=== PATIENT | female | born 1945 | race African-American/Black ===

== ENCOUNTER 2017-12-18 19:43 | Emergency (ER) | payer OTHER ==
[~2017-12-18] VITALS: Ht 167.6 cm; Wt 124.3 kg
[2017-12-18 20:27] LABS: Basophils # (auto) 0.1 uL; Eosinophils # (auto) 0.2 uL; Hemoglobin 9.9 g/dL (12.2-16.2); Nucleated Red Blood Cells % 0.1 %
[2017-12-18 20:29] LABS: Basophils % (auto) 0.8 % (0.0-2.0); Hematocrit 31.7 % (36.0-46.0); Lymphocytes % (auto) 18.1 % (10.0-50.0); Mean Corpuscular Hemoglobin 26.9 pg (28.0-32.0); Mean Corpuscular Hgb Conc. 31.3 g/dL (32.0-36.0); Mean Corpuscular Volume 85.9 fL (80.0-100.0); Monocytes # (auto) 0.7 uL; Monocytes % (auto) 6.5 % (0.0-12.0); Neutrophils # (auto) 8.2 uL; Neutrophils % (auto) 72.6 % (37.0-80.0); Platelet Count (auto) 391 10^3/uL (140-450); Red Blood Cells 3.69 10^6/uL (4.0-5.20); White Blood Cell 11.3 10^3/uL (4.4-10.8)
[2017-12-18 20:44] LABS: Partial Thromboplastin Time 41.3 sec (22.64-33.71); Prothrombin Time 49.2 sec (9.37-12.3)
[2017-12-18 20:47] LABS: INR 4.45 (0.9-1.15)
[2017-12-18 20:48] LABS: Alanine Aminotransferase 16 U/L (13-56); Albumin 2.9 g/dL (3.4-5.0); Alkaline Phosphatase 95 U/L (45-117); Anion Gap 11 (5-15); Aspartate Aminotransferase 15 U/L (15-37); BUN/Creatinine Ratio 12.2; Bilirubin, Total 0.2 mg/dL (0.2-1.0); Blood Urea Nitrogen 15 mg/dL (7-18); Calcium 8.2 mg/dL (8.5-10.1); Carbon Dioxide 23 mmol/L (21-32); Chloride 110 mmol/L (98-107); GFR African American 55 mL/min; GFR Non-African American 46 mL/min; Glucose 150 mg/dL (74-106); Potassium 3.3 mmol/L (3.5-5.1); Sodium 144 mmol/L (136-145); Total Protein 6.8 g/dL (6.4-8.2)
[2017-12-18] MEDS ORDERED: POTASSIUM CHL 20 Meq TABLET PO ONE (23:30)
[2017-12-19 00:49] LABS: Urine Bacteria FEW /hpf (None Seen); Urine Blood 3+ /uL (Negative); Urine Hyaline Cast MOD /lpf (0 - 2); Urine Mucus FEW (None Seen); Urine Specific Gravity 1.014 (1.001-1.035); Urine WBC 106 /hpf (0 - 5); Urine WBC Clumps PRESENT /hpf (None Seen)
[2017-12-19] MEDS ORDERED: PANTOPRAZOLE 40 MG/10 ML VIAL IV ONE (04:15)
[2017-12-19] MEDS ORDERED: metroNIDAZOLE 500 MG TAB PO ONE (04:30)
[2017-12-19] MEDS ORDERED: LEVOFLOXACIN 500 MG TAB PO ONE (04:30)
[2017-12-19 05:32] LABS: Hemoglobin 9.1 g/dL (12.2-16.2)
[2017-12-19 09:33] VITALS: BP 178/50
== END 2017-12-19 09:47 | disposition short-term general hospital (02) ==
LOC: ER 19:43
DX: K62.5 Hemorrhage of anus and rectum (principal); D64.9 Anemia, unspecified; D72.829 Elevated white blood cell count, unspecified; R73.9 Hyperglycemia, unspecified; D68.9 Coagulation defect, unspecified; J44.9 Chronic obstructive pulmonary disease, unspecified; I10 Essential (primary) hypertension; Z90.710 Acquired absence of both cervix and uterus; Z90.49 Acquired absence of other specified parts of digestive tract
CPT/HCPCS: 36415; 74176; 80053; 81001; 84484; 85014; 85018; 85025; 85610; 85730; 86850; 86900; 86901; 93005; 96374; 99285; C9113

== ENCOUNTER 2018-06-12 06:36 | Emergency (ER) | payer OTHER ==
[~2018-06-12] VITALS: Ht 167.6 cm; Wt 119.7 kg
[2018-06-12 07:48] VITALS: BP 141/76
== END 2018-06-12 08:18 | disposition home or self-care (01) ==
LOC: ER 06:36
DX: M25.532 Pain in left wrist (principal); M79.1 Myalgia; J44.9 Chronic obstructive pulmonary disease, unspecified; I10 Essential (primary) hypertension; Z88.6 Allergy status to analgesic agent; W01.0XXA Fall on same level from slipping, tripping and stumbling without subsequent striking against object, initial encounter; Y93.01 Activity, walking, marching and hiking; Y92.89 Other specified places as the place of occurrence of the external cause; Y99.8 Other external cause status
CPT/HCPCS: 72110; 73080; 73110

== ENCOUNTER 2020-10-27 22:30 | Emergency (ER) | payer OTHER ==
[~2020-10-27] VITALS: Ht 167.6 cm; Wt 81.6 kg
[2020-10-28 00:35] LABS: Basophils # (auto) 0 10 ^3/uL (0-0.2); Basophils % (auto) 0.2 % (0.0-2.0); Eosinophils # (auto) 0 10 ^3/uL (0-0.8); Eosinophils % (auto) 0.3 % (0.0-7.0); Hematocrit 38.9 % (36.0-46.0); Hemoglobin 12.6 g/dL (12.2-16.2); Lymphocytes # (auto) 2.5 10 ^3/uL (0.4-5.4); Lymphocytes % (auto) 19.6 % (10.0-50.0); Mean Corpuscular Hemoglobin 30.8 pg (28.0-32.0); Mean Corpuscular Hgb Conc. 32.4 g/dL (32.0-36.0); Mean Corpuscular Volume 95.2 fL (80.0-100.0); Monocytes % (auto) 7.6 % (0.0-12.0); Neutrophils # (auto) 9.1 10 ^3/uL (1.6-8.6); Neutrophils % (auto) 72.3 % (37.0-80.0); Nucleated Red Blood Cells % 0.1 %; Platelet Count (auto) 191 10^3/uL (140-450); Red Blood Cells 4.09 10^6/uL (4.0-5.20); Red Cell Distribution Width 13.9 % (11.8-14.3); White Blood Cell 12.7 10^3/uL (4.4-10.8)
[2020-10-28 00:58] LABS: Alanine Aminotransferase 128 U/L (13-56); Albumin 3.4 g/dL (3.4-5.0); Aspartate Aminotransferase 69 U/L (15-37); BUN/Creatinine Ratio 16.1; Blood Urea Nitrogen 24 mg/dL (7-18); GFR African American 44 mL/min; GFR Non-African American 36 mL/min; Glucose 112 mg/dL (74-106)
[2020-10-28 01:03] LABS: Alkaline Phosphatase 91 U/L (45-117); Bilirubin, Total 0.2 mg/dL (0.2-1.0); Total Protein 6.4 g/dL (6.4-8.2)
[2020-10-28 02:18] LABS: Chloride 108 mmol/L (98-107); Potassium 4.4 mmol/L (3.5-5.1); Sodium 142 mmol/L (136-145)
[2020-10-28 02:49] LABS: Anion Gap 6 (5-15); Carbon Dioxide 28 mmol/L (21-32)
[2020-10-28 03:00] LABS: Calcium 9.3 mg/dL (8.5-10.1)
[2020-10-28] MEDS ORDERED: KETOROLAC TROMETH 30 MG/ML 1ML VIAL IV ONE (07:30)
[2020-10-28] MEDS ORDERED: ACETAMINOPHEN 325 MG TAB PO ONE (11:30)
[2020-10-28 12:02] VITALS: BP 151/70
== END 2020-10-28 12:48 | disposition home or self-care (01) ==
LOC: EDBD 22:30 → ER 22:40
DX: R07.89 Other chest pain (principal); I10 Essential (primary) hypertension; J44.9 Chronic obstructive pulmonary disease, unspecified; F17.210 Nicotine dependence, cigarettes, uncomplicated; Z20.828 Contact with and (suspected) exposure to other viral communicable diseases
CPT/HCPCS: 36415; 71045; 80053; 82728; 83880; 84484; 85025; 86141; 87426; 93005; 96374; 99285; C9803; J1885; U0003

== ENCOUNTER 2021-09-15 11:44 | Emergency (ER) | payer OTHER ==
[~2021-09-15] VITALS: Ht 167.6 cm; Wt 106.1 kg
[2021-09-15 11:45] VITALS: BP 146/104
[2021-09-15] MEDS ORDERED: methylPREDNISolone SOD SUCC 125 MG/2 ML VL IV ONE (12:15)
[2021-09-15 15:15] LABS: Basophils # (auto) 0 10 ^3/uL (0-0.2); Basophils % (auto) 0.4 % (0.0-2.0); Eosinophils # (auto) 0.1 10 ^3/uL (0-0.8); Eosinophils % (auto) 0.9 % (0.0-7.0); Hematocrit 41.4 % (36.0-46.0); Hemoglobin 13.5 g/dL (12.2-16.2); Lymphocytes # (auto) 2.8 10 ^3/uL (0.4-5.4); Lymphocytes % (auto) 25.1 % (10.0-50.0); Mean Corpuscular Hgb Conc. 32.6 g/dL (32.0-36.0); Mean Corpuscular Volume 92.2 fL (80.0-100.0); Monocytes # (auto) 0.9 10 ^3/uL (0-1.3); Monocytes % (auto) 8.3 % (0.0-12.0); Neutrophils # (auto) 7.2 10 ^3/uL (1.6-8.6); Neutrophils % (auto) 65.3 % (37.0-80.0); Nucleated Red Blood Cells % 0.2 %; Red Blood Cells 4.49 10^6/uL (4.0-5.20); Red Cell Distribution Width 13.4 % (11.8-14.3)
[2021-09-15 15:26] LABS: Albumin 3.3 g/dL (3.4-5.0); Calcium 8.8 mg/dL (8.5-10.1); Potassium 4.5 mmol/L (3.5-5.1)
[2021-09-15 15:47] LABS: BUN/Creatinine Ratio 23.8; Bilirubin, Total 0.2 mg/dL (0.2-1.0); Total Protein 6.9 g/dL (6.4-8.2)
[2021-09-15] MEDS ORDERED: ACETAMINOPHEN 325 MG TAB PO ONE (16:45)
== END 2021-09-15 17:33 | disposition home or self-care (01) ==
LOC: EDBD 11:44 → ER 11:44
DX: J44.1 Chronic obstructive pulmonary disease with (acute) exacerbation (principal); I12.9 Hypertensive chronic kidney disease with stage 1 through stage 4 chronic kidney disease, or unspecified chronic kidney disease; N18.9 Chronic kidney disease, unspecified; Z86.73 Personal history of transient ischemic attack (TIA), and cerebral infarction without residual deficits; Z90.49 Acquired absence of other specified parts of digestive tract; Z90.710 Acquired absence of both cervix and uterus; Z88.5 Allergy status to narcotic agent
CPT/HCPCS: 36415; 71045; 80053; 83880; 84484; 85025; 85379; 93005

== ENCOUNTER 2022-12-09 19:31 | Emergency (ER) | payer OTHER ==
[~2022-12-09] VITALS: Ht 167.6 cm; Wt 100.0 kg
[2022-12-09 20:36] LABS: Basophils # (auto) 0.1 10 ^3/uL (0-0.2); Basophils % (auto) 0.8 % (0.0-2.0); Eosinophils # (auto) 0.2 10 ^3/uL (0-0.8); Eosinophils % (auto) 1.7 % (0.0-7.0); Hematocrit 40.6 % (36.0-46.0); Hemoglobin 13.2 g/dL (12.2-16.2); Lymphocytes # (auto) 2.7 10 ^3/uL (0.4-5.4); Lymphocytes % (auto) 26.9 % (10.0-50.0); Mean Corpuscular Hemoglobin 30.7 pg (28.0-32.0); Mean Corpuscular Hgb Conc. 32.5 g/dL (32.0-36.0); Mean Corpuscular Volume 94.5 fL (80.0-100.0); Monocytes # (auto) 0.8 10 ^3/uL (0-1.3); Monocytes % (auto) 7.7 % (0.0-12.0); Neutrophils # (auto) 6.2 10 ^3/uL (1.6-8.6); Neutrophils % (auto) 62.9 % (37.0-80.0); Red Cell Distribution Width 13.4 % (11.8-14.3); White Blood Cell 9.9 10^3/uL (4.4-10.8)
[2022-12-09 20:40] LABS: Albumin 3.4 g/dL (3.4-5.0); Calcium 8.8 mg/dL (8.5-10.1); Potassium 4.4 mmol/L (3.5-5.1)
[2022-12-09 20:45] LABS: BUN/Creatinine Ratio 13.7; Bilirubin, Total 0.3 mg/dL (0.2-1.0); Total Protein 5.9 g/dL (6.4-8.2)
[2022-12-09 22:17] LABS: Urine Bacteria FEW /hpf (None Seen); Urine Blood Negative /uL (Negative); Urine Hyaline Cast MANY /lpf (0 - 2); Urine Mucus FEW (None Seen); Urine Specific Gravity 1.013 (1.001-1.035); Urine WBC 5 /hpf (0 - 5)
[2022-12-10] MEDS ORDERED: SODIUM CHLORIDE 0.9% 500 ML IV ONE (04:45)
[2022-12-10] MEDS ORDERED: cefTRIAXone 1GM/50ML D5W 50 ML IV ONE (04:45)
[2022-12-10 11:21] VITALS: BP 116/41
== END 2022-12-10 11:38 | disposition short-term general hospital (02) ==
LOC: EDBD 19:31 → ER 19:31
DX: R55 Syncope and collapse (principal); J44.9 Chronic obstructive pulmonary disease, unspecified; I12.9 Hypertensive chronic kidney disease with stage 1 through stage 4 chronic kidney disease, or unspecified chronic kidney disease; N18.9 Chronic kidney disease, unspecified; Z90.49 Acquired absence of other specified parts of digestive tract; Z90.710 Acquired absence of both cervix and uterus; Z20.822 Contact with and (suspected) exposure to COVID-19
CPT/HCPCS: 36415; 70450; 71045; 80053; 81001; 82962; 84484; 85025; 87426; 93005; 96365; 99285; J0696; J7040

== ENCOUNTER 2023-12-01 09:33 | Emergency (ER) | payer OTHER ==
[~2023-12-01] VITALS: Ht 160 cm; Wt 92.8 kg
[2023-12-01 09:40] VITALS: PULSE 106; RESP 17; O2SAT 99
[2023-12-01 10:40] LABS: Basophils # (auto) 0.1 10 ^3/uL (0-0.2); Basophils % (auto) 0.5 % (0.0-2.0); Eosinophils # (auto) 0.1 10 ^3/uL (0-0.8); Eosinophils % (auto) 0.5 % (0.0-7.0); Hematocrit 42.2 % (36.0-46.0); Hemoglobin 13.9 g/dL (12.2-16.2); Lymphocytes # (auto) 2.2 10 ^3/uL (0.4-5.4); Lymphocytes % (auto) 19.1 % (10.0-50.0); Mean Corpuscular Hemoglobin 30.7 pg (28.0-32.0); Monocytes % (auto) 8.7 % (0.0-12.0); Neutrophils # (auto) 8.3 10 ^3/uL (1.6-8.6); Neutrophils % (auto) 71.2 % (37.0-80.0); Nucleated Red Blood Cells % 0.1 %; Red Blood Cells 4.53 10^6/uL (4.0-5.20); Red Cell Distribution Width 13.2 % (11.8-14.3); White Blood Cell 11.7 10^3/uL (4.4-10.8)
[2023-12-01] MEDS ORDERED: ONDANSETRON HCL 4 MG/2 ML VIAL IV ONE (10:45)
[2023-12-01] MEDS ORDERED: MORPHINE SULFATE 4 MG/ML SYR/VIAL IV ONE (10:45)
[2023-12-01 10:51] LABS: Chloride 109 mmol/L (98-107); Potassium 3.7 mmol/L (3.5-5.1); Sodium 141 mmol/L (136-145)
[2023-12-01 10:52] LABS: Anion Gap 8 (5-15); Calcium 9.8 mg/dL (8.5-10.1); Carbon Dioxide 24 mmol/L (20-30)
[2023-12-01 10:54] LABS: Urine Epithelial Cast None Seen /hpf (<5)
[2023-12-01 10:57] LABS: BUN/Creatinine Ratio 15.2 (10.0-20.0); Blood Urea Nitrogen 19 mg/dL (9-23); Glucose 109 mg/dL (74-106)
[2023-12-01 11:12] LABS: Urine Bacteria FEW /hpf (None Seen); Urine Blood 1+ /uL (Negative); Urine Budding Yeast OCCASIONAL /hpf (None Seen); Urine Clarity Clear (Clear); Urine Color Yellow (Yellow); Urine Hyaline Cast MOD /lpf (0 - 2); Urine Mucus FEW (None Seen); Urine Protein, UAD 1+ (Negative); Urine Specific Gravity 1.017 (1.001-1.035); Urine Urobilinogen Normal (Negative); Urine WBC 1 /hpf (0 - 5); Urine pH 5.5 (5.0-8.0)
[2023-12-01 16:59] VITALS: BP 130/46; PULSE 88; RESP 16; TEMP 99; O2SAT 97
== END 2023-12-01 17:11 | disposition short-term general hospital (02) ==
LOC: EDBD 09:33 → ER 09:33
DX: M54.9 Dorsalgia, unspecified (principal); R10.9 Unspecified abdominal pain; J45.909 Unspecified asthma, uncomplicated; J44.9 Chronic obstructive pulmonary disease, unspecified; I10 Essential (primary) hypertension; F12.10 Cannabis abuse, uncomplicated; D72.829 Elevated white blood cell count, unspecified; Z86.73 Personal history of transient ischemic attack (TIA), and cerebral infarction without residual deficits; Z90.49 Acquired absence of other specified parts of digestive tract; Z90.710 Acquired absence of both cervix and uterus; Z88.6 Allergy status to analgesic agent
CPT/HCPCS: 36415; 74176; 80048; 81001; 85025; 96374; 96375; 99285; J2270; J2405

== ENCOUNTER 2023-12-18 18:15 | Inpatient (IN) | payer OTHER ==
[~2023-12-18] VITALS: Ht 167.6 cm; Wt 87.6 kg
[2023-12-18 19:28] LABS: Basophils # (auto) 0 10 ^3/uL (0-0.2); Basophils % (auto) 0.1 % (0.0-2.0); Eosinophils # (auto) 0 10 ^3/uL (0-0.8); Hematocrit 38.5 % (36.0-46.0); Hemoglobin 12.6 g/dL (12.2-16.2); Lymphocytes # (auto) 0.7 10 ^3/uL (0.4-5.4); Lymphocytes % (auto) 7.5 % (10.0-50.0); Mean Corpuscular Hgb Conc. 32.6 g/dL (32.0-36.0); Monocytes # (auto) 0.9 10 ^3/uL (0-1.3); Neutrophils # (auto) 8.2 10 ^3/uL (1.6-8.6); Neutrophils % (auto) 83.4 % (37.0-80.0); Red Blood Cells 4.18 10^6/uL (4.0-5.20); Red Cell Distribution Width 13.2 % (11.8-14.3); White Blood Cell 9.9 10^3/uL (4.4-10.8)
[2023-12-18 19:44] LABS: Alanine Aminotransferase 14 U/L (7-40); Albumin 3.7 g/dL (3.2-4.8); Alkaline Phosphatase 66 U/L (46-116); Anion Gap 9 (5-15); Aspartate Aminotransferase 26 U/L (13-40); Blood Urea Nitrogen 16 mg/dL (9-23); Calcium 8.7 mg/dL (8.7-10.4); Carbon Dioxide 21 mmol/L (20-30); Chloride 107 mmol/L (98-107); Glucose 110 mg/dL (74-106); Magnesium 1.8 mg/dL (1.6-2.6); Potassium 3.9 mmol/L (3.5-5.1); Sodium 137 mmol/L (136-145)
[2023-12-18 19:45] LABS: Bilirubin, Total 0.6 mg/dL (0.2-1.0); Total Protein 6.3 g/dL (5.7-8.2)
[2023-12-18] MEDS: IPRATROPIUM BROM 0.5 MG/2.5ML INH SOL HHN ONE (19:49)
[2023-12-18] MEDS: ALBUTEROL SULF 2.5 MG/0.5ML(0.5%) NEB SOLN HHN ONE (19:49)
[2023-12-18] MEDS: methylPREDNISolone SOD SUCC 125 MG/2 ML VL IV ONE (20:16)
[2023-12-18] MEDS: cefTRIAXone 1GM/50ML D5W 50 ML IV ONE (20:16)
[2023-12-18] MEDS: ONDANSETRON HCL 4 MG/2 ML VIAL IV ONE (20:17)
[2023-12-18] MEDS: ACETAMINOPHEN 325 MG TAB PO ONE (20:17)
[2023-12-18] MEDS: AZITHROMYCIN 500MG/ 250ML 250 ML IV ONE (20:19)
[2023-12-18] MEDS: FAMOTIDINE (10MG/ML) 2ML VL IV ONE (20:24)
[2023-12-18] MEDS: PROMETHAZINE-DM 5 ML ORAL SYRUP PO ONE (21:00)
[2023-12-18 21:59] LABS: Rapid Influenza A Negative (Negative); Rapid Influenza B Negative (Negative)
[2023-12-18 22:01] LABS: COVID19 ANTIGEN SOFIA FIA POSITIVE (NEGATIVE)
[2023-12-18] MEDS ORDERED: ALBUTEROL SULF HFA 90MCG INH 200DOSE IN PRN (22:30)
[2023-12-18] MEDS ORDERED: REMDESIVIR PER PHARMACY 0 ML IV SCH (22:30)
[2023-12-19 01:25] VITALS: PULSE 85; RESP 21; O2SAT 100
[2023-12-19] MEDS ORDERED: NITROGLYCERIN 0.4 MG SL TAB SL PRN (04:00)
[2023-12-19] MEDS ORDERED: ONDANSETRON HCL 4 MG/2 ML VIAL IV PRN (04:00)
[2023-12-19 08:00] VITALS: RESP 17; O2SAT 96
[2023-12-19] MEDS: ENOXAPARIN SOD 40 MG/0.4 ML SYRINGE SC SCH (10:00)
[2023-12-19] MEDS: DexAMETHasone SOD PHOS 10MG/1ML VIAL INJ IV SCH (10:19)
[2023-12-19] MEDS: ZINC SULFATE 220mg CAP or TAB PO SCH (10:20)
[2023-12-19] MEDS: SERTRALINE HCL 50 MG TAB PO SCH (10:20)
[2023-12-19] MEDS: amLODIPine BESYLATE 5 MG TAB PO SCH (10:20)
[2023-12-19] MEDS: REMDESIVIR 200 MG in NS 210ml LOADING DOSE ADULT IV ONE (15:00)
[2023-12-19] MEDS ORDERED: AZITHROMYCIN 500MG/ 250ML 250 ML IV ONE (15:15)
[2023-12-19 15:57] LABS: Base Excess -2.3 mmol/L (-2.0-2.0)
[2023-12-19 20:00] VITALS: PULSE 86; RESP 15; O2SAT 97
[2023-12-19] MEDS: ACETAMINOPHEN 325 MG TAB PO PRN (20:19)
[2023-12-20] VITALS (10 sets, daily range): BP systolic 104–123; BP diastolic 66–74; PULSE 75–98; RESP 16–18; TEMP 97.2–98.2; O2SAT 95–99
[2023-12-20] MEDS: TEMAZEPAM 15 MG CAP PO ONE (00:28)
[2023-12-20] MEDS: cefTRIAXone 1GM/50ML D5W 50 ML IV SCH (08:33)
[2023-12-20] MEDS ORDERED: AZITHROMYCIN 500MG/ 250ML 250 ML IV SCH (10:00)
[2023-12-20 10:23] LABS: Basophils # (auto) 0 10 ^3/uL (0-0.2); Basophils % (auto) 0.1 % (0.0-2.0); Eosinophils # (auto) 0 10 ^3/uL (0-0.8); Hematocrit 38.1 % (36.0-46.0); Hemoglobin 12.2 g/dL (12.2-16.2); Lymphocytes % (auto) 5.6 % (10.0-50.0); Mean Corpuscular Hemoglobin 29.9 pg (28.0-32.0); Mean Corpuscular Hgb Conc. 31.9 g/dL (32.0-36.0); Mean Corpuscular Volume 93.6 fL (80.0-100.0); Monocytes # (auto) 1.2 10 ^3/uL (0-1.3); Monocytes % (auto) 6.8 % (0.0-12.0); Neutrophils % (auto) 87.5 % (37.0-80.0); Red Blood Cells 4.07 10^6/uL (4.0-5.20); Red Cell Distribution Width 13.5 % (11.8-14.3); White Blood Cell 17.2 10^3/uL (4.4-10.8)
[2023-12-20 10:30] LABS: Alanine Aminotransferase 16 U/L (7-40); Albumin 3.7 g/dL (3.2-4.8); Alkaline Phosphatase 65 U/L (46-116); Anion Gap 5 (5-15); Aspartate Aminotransferase 24 U/L (13-40); Blood Urea Nitrogen 22 mg/dL (9-23); Calcium 9.2 mg/dL (8.5-10.1); Carbon Dioxide 23 mmol/L (20-30); Chloride 110 mmol/L (98-107); Glucose 100 mg/dL (74-106); Potassium 4.2 mmol/L (3.5-5.1); Sodium 138 mmol/L (136-145)
[2023-12-20 10:31] LABS: Bilirubin, Total 0.3 mg/dL (0.2-1.0)
[2023-12-20] MEDS: REMDESIVIR 100mg 100 MG in SODIUM CHL 0.9% 230 ML IV SCH (14:34)
[2023-12-20] MEDS ORDERED: MELO10CA2 PO (21:57)
[2023-12-20] MEDS ORDERED: TEMAZEPAM 15 MG CAP PO ONE (22:45)
[2023-12-21] VITALS (8 sets, daily range): BP systolic 113–132; BP diastolic 62–87; PULSE 78–95; RESP 17–20; TEMP 97.9–98.7; O2SAT 97–100
[2023-12-21 06:23] LABS: Basophils # (auto) 0 10 ^3/uL (0-0.2); Eosinophils # (auto) 0 10 ^3/uL (0-0.8); Hematocrit 37.8 % (36.0-46.0); Hemoglobin 12.1 g/dL (12.2-16.2); Lymphocytes # (auto) 1.1 10 ^3/uL (0.4-5.4); Lymphocytes % (auto) 7.1 % (10.0-50.0); Mean Corpuscular Hemoglobin 29.8 pg (28.0-32.0); Mean Corpuscular Volume 92.9 fL (80.0-100.0); Monocytes # (auto) 1.3 10 ^3/uL (0-1.3); Monocytes % (auto) 8.3 % (0.0-12.0); Neutrophils # (auto) 13.3 10 ^3/uL (1.6-8.6); Neutrophils % (auto) 84.6 % (37.0-80.0); Red Blood Cells 4.07 10^6/uL (4.0-5.20); Red Cell Distribution Width 13.3 % (11.8-14.3); White Blood Cell 15.8 10^3/uL (4.4-10.8)
[2023-12-21 06:43] LABS: Alanine Aminotransferase 16 U/L (7-40); Albumin 3.6 g/dL (3.2-4.8); Alkaline Phosphatase 69 U/L (46-116); Anion Gap 7 (5-15); Aspartate Aminotransferase 18 U/L (13-40); BUN/Creatinine Ratio 25.5 (10.0-20.0); Blood Urea Nitrogen 28 mg/dL (9-23); Calcium 9.1 mg/dL (8.5-10.1); Carbon Dioxide 25 mmol/L (20-30); Chloride 109 mmol/L (98-107); Glucose 85 mg/dL (74-106); Potassium 4.4 mmol/L (3.5-5.1); Sodium 141 mmol/L (136-145)
[2023-12-21 06:44] LABS: Bilirubin, Total 0.2 mg/dL (0.2-1.0); Total Protein 5.7 g/dL (5.7-8.2)
[2023-12-21 13:21] LABS: Base Excess 0.1 mmol/L (-2.0-2.0)
[2023-12-21] MEDS: TEMAZEPAM 15 MG CAP PO ONE (22:49)
[2023-12-22] VITALS (9 sets, daily range): BP systolic 100–132; BP diastolic 58–87; PULSE 80–101; RESP 16–22; TEMP 98.1–98.5; O2SAT 97–100
[2023-12-22 05:36] LABS: Alanine Aminotransferase 14 U/L (7-40); Albumin 3.5 g/dL (3.2-4.8); Alkaline Phosphatase 67 U/L (46-116); Anion Gap 5 (5-15); Aspartate Aminotransferase 13 U/L (13-40); BUN/Creatinine Ratio 20.7 (10.0-20.0); Blood Urea Nitrogen 19 mg/dL (9-23); Calcium 8.7 mg/dL (8.7-10.4); Carbon Dioxide 23 mmol/L (20-30); Chloride 110 mmol/L (98-107); Glucose 92 mg/dL (74-106); Magnesium 2.1 mg/dL (1.6-2.6); Potassium 4.4 mmol/L (3.5-5.1); Sodium 138 mmol/L (136-145)
[2023-12-22 05:37] LABS: Bilirubin, Total 0.3 mg/dL (0.2-1.0)
[2023-12-22] MEDS: IPRATROPIUM BROM 0.5 MG/2.5ML INH SOL NEB PRN (12:08)
[2023-12-22] MEDS: ALBUTEROL SULF 2.5 MG/0.5ML(0.5%) NEB SOLN NEB PRN (12:08)
[2023-12-22] MEDS: PANTOPRAZOLE 40 MG/10 ML VIAL INJ IV ONE (12:36)
[2023-12-22 15:38] LABS: Basophils # (auto) 0 10 ^3/uL (0-0.2); Eosinophils # (auto) 0 10 ^3/uL (0-0.8); Hemoglobin 12.3 g/dL (12.2-16.2); Lymphocytes # (auto) 0.8 10 ^3/uL (0.4-5.4); Neutrophils # (auto) 11.5 10 ^3/uL (1.6-8.6); White Blood Cell 13.2 10^3/uL (4.4-10.8)
[2023-12-22 15:40] LABS: Basophils % (auto) 0.1 % (0.0-2.0); Hematocrit 38.1 % (36.0-46.0); Lymphocytes % (auto) 5.9 % (10.0-50.0); Mean Corpuscular Hemoglobin 29.7 pg (28.0-32.0); Mean Corpuscular Hgb Conc. 32.2 g/dL (32.0-36.0); Mean Corpuscular Volume 92.1 fL (80.0-100.0); Monocytes # (auto) 0.9 10 ^3/uL (0-1.3); Monocytes % (auto) 6.9 % (0.0-12.0); Neutrophils % (auto) 87.1 % (37.0-80.0); Nucleated Red Blood Cells % 0.1 %; Red Blood Cells 4.13 10^6/uL (4.0-5.20); Red Cell Distribution Width 13.2 % (11.8-14.3)
[2023-12-22 16:34] LABS: Platelet Estimate Decreased; RBC Morphology Normal
[2023-12-23] MEDS ORDERED: PANTOPRAZOLE 40 MG/10 ML VIAL INJ IV SCH (10:00)
== END 2023-12-22 18:11 | disposition short-term general hospital (02) | DRG 177 ==
LOC: ER 18:15 → EDBD 18:15 → TELE 12-19 04:03 → TELE-CENTR 12-20 04:03
PROVIDERS: ADMIT Internal Medicine Pulmonary Disease; ATTEND Internal Medicine Pulmonary Disease
DX: U07.1 COVID-19 (principal); J12.82 Pneumonia due to coronavirus disease 2019; J96.21 Acute and chronic respiratory failure with hypoxia; J44.1 Chronic obstructive pulmonary disease with (acute) exacerbation; R78.81 Bacteremia; N17.9 Acute kidney failure, unspecified; J44.0 Chronic obstructive pulmonary disease with (acute) lower respiratory infection; N18.31 Chronic kidney disease, stage 3a; I12.9 Hypertensive chronic kidney disease with stage 1 through stage 4 chronic kidney disease, or unspecified chronic kidney disease; E11.22 Type 2 diabetes mellitus with diabetic chronic kidney disease; Z88.5 Allergy status to narcotic agent; E11.9 Type 2 diabetes mellitus without complications
CPT/HCPCS: 36415; 36600; 71045; 80053; 82728; 82805; 83605; 83615; 83735; 83880; 84484; 85025; 85379; 86141; 87040; 87077; 87081; 87186; 87426; 87804; 93005; 93970; 94640; 96365; 96368; 96375; 99291; C9113; G0378; J1100; J2405; J3490

== ENCOUNTER 2025-01-12 22:31 | Emergency (ER) | payer OTHER, MEDICAID ==
[~2025-01-12] VITALS: Ht 162.6 cm; Wt 86.3 kg
[~2025-01-12 22:31] MED LIST: MELO10CA2 PO
[2025-01-12] MEDS: IPRATROPIUM BROM 0.5 MG/2.5ML INH SOL NEB ONE (22:56)
[2025-01-12] MEDS: ALBUTEROL SULF 2.5 MG/0.5ML(0.5%) NEB SOLN NEB ONE (22:56)
[2025-01-12 23:37] VITALS: TEMP 98.3
[2025-01-12] MEDS: DexAMETHasone SOD PHOS 10MG/1ML VIAL INJ IM ONE (23:45)
[2025-01-12 23:51] VITALS: PULSE 73; RESP 18; O2SAT 96
[2025-01-13 00:28] VITALS: BP 119/63; PULSE 76; RESP 20; O2SAT 96
--- NOTE | 2025-01-13 00:29 | ED.PDOC ---
SOB-HPI HPI Comments This patient is a pleasant 79-year-old obese female who arrives the ED today via EMS due to complaints of shortness a breath. Patient states she utilized a cannabis wax earlier today and subsequent to that, started to experience shortness a breath. Patient does have a history of COPD for which she does not utilize regular medication due to insurance purposes. EMS stated that at time of arrival her oxygen saturation was at 88%. Patient denies any fever nausea or vomiting. Vital signs were stable on arrival. Patient did not display any signs of respiratory distress. Patient was on 2 L of oxygen via nasal cannula. Chief Complaint: Shortness of Breath Time Seen by MD: 22:36 Primary Care Provider: DR GASPAR Reviewed notes: Nurses Notes, Log Chain Feeder Notes Information Source: Patient, Emergency Med Personnel Mode of Arrival: EMS Severity: Moderate Timing: Hours Duration: Since onset Context: At Rest PE Risk Factors: None History of: COPD Prehospital treatment: 12 Lead EKG Modifying Factors: Nothing Associated Signs and Symptoms: Wheeze Quality: Tightness Radiation: No Radiation If cough with SOB: Non-Productive Past Medical History PAST MEDICAL HISTORY: Asthma, CKF, COPD, CVA, HTN Surgical History: Cholecystectomy, Hernia Repair, Hysterectomy PLATE SENSITIZER History: No Pertinent PLATE SENSITIZER History Family History Family History: Family hx of heart oliva, Family hx of HTN Social History Smoker: Non-Smoker Alcohol: Denies ETOH Use Drugs: Marijuana Lives In: Home Constitutional: denies: chills, diaphoresis, fatigue, fever, malaise, sweats, weakness, others EENTM: denies: blurred vision, double vision, ear bleeding, ear discharge, ear drainage, ear pain, ear ringing, eye pain, eye redness, hearing loss, mouth pain, mouth swelling, nasal discharge, nose bleeding, nose congestion, nose pain, photophobia, tearing, throat pain, throat swelling, voice changes, others Respiratory: reports: cough, SOB at rest, shortness of breath; denies: hemoptysis, orthopnea, SOB with excertion, stridor, wheezing, others Cardiovascular: denies: chest pain, dizzy spells, diaphoresis, Dyspnea on exertion, edema, irregular heart beat, left arm pain, lightheadedness, palpitations, PND, syncope, others Gastrointestinal: denies: abdomen distended, abdominal pain, blood streaked bowels, constipated, diarrhea, dysphagia, difficulty swallowing, hematemesis, melena, nausea, poor appetite, poor fluid intake, rectal bleeding, rectal pain, vomiting, others Genitourinary: denies: abnormal vagina bleeding, burning, dyspareunia, dysuria, flank pain, frequency, hematuria, incontinence, pain, , vagina discharge, urgency, others Neurological: denies: dizziness, fainting, headache, left sided numbness, left sided weakness, numbness, paresthesia, pre-existing deficit, right sided numbness, right sided weakness, seizure, speech problems, tingling, tremors, weakness, others Musculoskeletal: denies: back pain, gout, joint pain, joint swelling, muscle pain, muscle stiffness, neck pain, others Integumetry: denies: bruises, change in color, change in hair/nails, dryness, laceration, lesions, lumps, rash, wounds, others Allergic/Immunocompromised: denies: Difficulty Healing, Frequent Infections, Hives, Itching, others Hematologic/Lymphatic: denies: anemia, blood clots, easy bleeding, easy bruising, swollen glands, others Endocrine: denies: excessive hunger, excessive sweating, excessive thirst, excessive urination, flushing, intolerance to cold, intolerance to heat, unexplained weight gain, unexplained weight loss, others Psychiatric: denies: anxiety, bipolar disorder, depression, hopeless, panic disorder, schizophrenia, sleepless, suicidal, others Physical Exam General Appearance: Mild Distress (Patient was in moderate distress at time of evaluation due to continued shortness a breath concerns.), Obese HEENT: Normal ENT Inspection, Pharynx Normal, TMs Normal Neck: Full Range of Motion, Non-Tender, Normal, Normal Inspection Respiratory: Other ( Mild wheeze appreciated right middle and right upper lobe. No accessory muscle use. No signs of respiratory distress.) Cardiovascular: No Edema, No JVD, No Murmur, No Gallop, Normal Peripheral Pulses, Regular Rate/Rhythm Breast Exam: Deferred Gastrointestinal: No Organomegaly, Non Tender, No Pulsatile Mass, Normal Bowel Sounds, Soft Genitalia: Deferred Pelvic: Deferred Rectal: Deferred Extremities: No calf tenderness, Normal capillary refill, Normal inspection, Normal range of motion, Non-tender, No pedal edema Neurologic: Alert, No Motor Deficits, Normal Affect, Normal Mood, No Sensory Deficits Cerebellar Function: Normal Reflexes: Normal Skin: Dry, Normal Color, Warm Lymphatic: No Adenopathy EKG EKG : [place]: Normal Was a procedure done? Was a procedure done?: No Differential Dx Differential Diagnosis: Other ( COPD exacerbation, shortness a breath) X-Ray, Labs, Meds, VS Vital Signs Date Time Temp Pulse Resp B/P (MAP) Pulse Ox O2 Delivery O2 Flow Rate FiO2 01/12/25 23:51 73 18 96 Room Air* 0 21 01/12/25 23:37 98.3 78 19 108/49 (68) 97 98.3 01/12/25 22:56 18 96 Room Air* 0 21 01/12/25 22:42 97.8 106 24 152/74 (100) 99 01/12/25 22:42 24 97 Room Air* 0 21 Current Medications Medications (Trade) Dose Ordered Sig/Yandel Route Start Time Stop Time Status Last Admin Albuterol (Ventolin Medneb) 5 mg ONCE ONCE NEB 01/12/25 22:45 01/12/25 22:46 DC 01/12/25 22:56 Ipratropium [place] (Atrovent Medneb) 0.5 mg ONCE ONCE NEB 01/12/25 22:45 01/12/25 22:46 DC 01/12/25 22:56 Dexamethasone Sodium Phosphate (Decadron Injection) 10 mg ONCE ONCE IM 01/12/25 22:45 01/12/25 22:46 DC 01/12/25 23:45 X-Ray, Labs, Meds, VS Comment Patient received a breathing treatment at the facility as well as a dexamethasone injection. Patient was brought over to bed 17 observed for 2 hours. Patient's oxygen saturation remained at approximately in 95-96%. Patient states she would like to go home and I advised that we will discharge her, but she can return if her symptoms rebound. Advised patient tried to follow up with the primary care provider for discussions related to better medication management of her COPD. Patient states Spiriva he was ineffective in helping her. Patient states Trulicity is the only medication that is effective and it is expensive. Time of 1ST Reevaluation: 00:27 Reevaluation 1ST: Improved Consultation: PCP Patient Education/Counseling: Diagnosis, Treatment Family Education/Counseling: Diagnosis, Treatment Departure 1 Departure Time of Disposition: 00:28 Impression: Primary Impression: COPD exacerbation Disposition: 01 HOME / SELF CARE / HOMELESS Condition: Stable Additional Instructions: Advised patient follow up with the primary care provider for discussions related to possible additional medications that will aid her in her COPD concerns. Patient should talk to her doctor about possibly ascertaining home oxygen for emergent concerns. Discharged With: Self, Friend Critical Care Note Critical Care Time?: No Stability Stability form required: No Heart Score Heart Score: Heart Score Response (Comments) Value History Slightly Suspicious 0 EKG Normal 0 Age >65 2 Risk Factors 1 or 2 risk factors 1 Troponin N/A 0 Total 3 CHARLI CONTRERAS PAC Jan 13, 2025 00:29
--- NOTE | 2025-01-13 04:36 | ECG ---
[facility] Test Date: 2025-01-12 Test Time: 22:44:31 Pat Name: CECILIA MAHMOOD Department: ER Room: Gender: F Director [employer] Marketing: : 1945 Requested By: CHARLI CONTRERAS Order Number: [id number] Reading MD: Measurements Intervals [place] Rate: 95 P: 39 VT: 125 QRS: -65 QRSD: 214 T: 95 QT: 445 QTc: 560 Interpretive Statements Sinus rhythm Atrial premature complex Left bundle branch block Please click the below link to view image of tracing.
== END 2025-01-13 00:29 | disposition home or self-care (01) ==
LOC: EDBD 22:31 → ER 22:31
DX: J44.1 Chronic obstructive pulmonary disease with (acute) exacerbation (principal); I12.9 Hypertensive chronic kidney disease with stage 1 through stage 4 chronic kidney disease, or unspecified chronic kidney disease; N18.9 Chronic kidney disease, unspecified; Z86.73 Personal history of transient ischemic attack (TIA), and cerebral infarction without residual deficits; Z90.49 Acquired absence of other specified parts of digestive tract; Z90.710 Acquired absence of both cervix and uterus; Z98.890 Other specified postprocedural states
CPT/HCPCS: 93005; 94640; 96372; 99285; J1100